=== PATIENT | male | born 1990 | race Caucasian/White ===

== ENCOUNTER 2019-01-09 13:43 | Emergency (ER) | payer OTHER ==
--- NOTE | 2019-01-09 15:51 | ED ---
Complex/Multi-Sys Presentation - HPI Summary HPI Summary: This patient is a 28 year old M presenting to ED with a chief complaint of visual changes since 2-3 days ago. 2-3 days ago patient started having left-eye vision problems where he was unable to focus on things far away or close to him. This morning, patient was at a briefing meeting and felt hot. He took his sweater off but continued to feel hot so he sat down. When he sat down, he felt shooting heat up both sides of his neck and experienced blacked vision. Patient reports he felt nauseous and vomited a little bit. Patient sat and rested for about 30 minutes and felt okay afterwards. In the ED room, patient reports feeling better except for the odd sensation in his left eye and face. The patient rates the pain 0/10 in severity. Symptoms aggravated by nothing. Symptoms alleviated by nothing. - History Of Current Complaint Chief Complaint: EDGeneral Time Seen by Provider: 01/09/19 15:35 Hx Obtained From: Patient Onset/Duration: Gradual Onset, Lasting Days - 2-3 days ago, Still Present Timing: Constant Severity Currently: Mild Severity Initially: Mild Aggravating Factor(s): Nothing Alleviating Factor(s): Nothing Associated Signs And Symptoms: Positive: Nausea, Vomiting - x1, Other - visual changes, "blacked vision," left-eye/face "odd sensation," "heat climbing up neck " - Allergies/Home Medications Allergies/Adverse Reactions: Allergies Allergy/AdvReac Type Severity Reaction Status Date / Time Penicillins Allergy Unknown Verified 01/09/19 13:50 Reaction Details Home Medications: Home Medications NK [No Home Medications Reported] 01/09/19 [History Confirmed 01/09/19] PMH/Surg Hx/FS Hx/Imm Hx Endocrine/Hematology History: Denies: Hx Diabetes Cardiovascular History: Denies: Hx Hypercholesterolemia, Hx Hypertension Respiratory History: Denies: Hx Asthma, Hx Chronic Obstructive Pulmonary Disease (COPD) Musculoskeletal History: 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 - Surgical History Surgery Procedure, Year, and Place: Appendectomy, hernia surgery, wisdom teeth Infectious Disease History: No Infectious Disease History: Denies: Traveled Outside the [place] in Last 30 Days - Family History Known Family History: Positive: Other - Breast cancer, skin cancer Negative: Hypertension, Diabetes - Social History Alcohol Use: Occasionally Hx Substance Use: No Substance Use Type: Reports: None Hx Tobacco Use: No Smoking Status (MU): Never Smoked Tobacco Review of Systems Constitutional: Other - Feeling hot, heat climbing up neck Eyes: Other - Inability to focus left eye, blacked vision Positive: Vomiting - x1, Nausea All Other Systems Reviewed And Are Negative: Yes Physical Exam - Summary Physical Exam Summary: VITAL SIGNS: Reviewed. GENERAL: Patient is a well-developed and nourished M who is lying comfortable in the stretcher.Patient is not in any acute respiratory distress. HEAD AND FACE: No signs of trauma. No ecchymosis, hematomas or skull depressions. No sinus tenderness. EYES: PERRLA, EOMI x 2, No injected conjunctiva, no nystagmus. No photophobia. EARS: Hearing grossly intact. Ear canals and tympanic membranes are within normal limits. MOUTH: Oropharynx within normal limits. NECK: Supple, trachea is midline, no adenopathy, no JVD, no carotid bruit, no c- spine tenderness, neck with full ROM. No meningeal signs, no Kernig's or brudzinskis signs. CHEST: Symmetric, no tenderness at palpation. LUNGS: Clear to auscultation bilaterally. No wheezing or crackles. CVS: Regular rate and rhythm, S1 and S2 present, no murmurs or gallops appreciated. ABDOMEN: Soft, non-tender. No signs of distention. No rebound, no guarding, and no masses palpated. Bowel sounds are normal. EXTREMITIES: FROM in all major joints, no edema, no cyanosis or clubbing. NEURO: Alert and oriented x 3. No acute neurological deficits. Speech is normal and follows commands. SKIN: Dry and warm. GCS: 15 Triage Information Reviewed: Yes Vital Signs On Initial Exam: Initial Vitals Temp Pulse Resp BP Pulse Ox 98.6 F 85 16 147/77 98 01/09/19 13:46 01/09/19 13:46 01/09/19 13:46 01/09/19 13:46 01/09/19 13:46 Vital Signs Reviewed: Yes - [place] Coma Scale Best Eye Response: 4 - Spontaneous Best Motor Response: 6 - Obeys Commands Best Verbal Response: 5 - Oriented Coma Scale Total: 15 Diagnostics - Vital Signs Vital Signs Temp Pulse Resp BP Pulse Ox 01/09/19 13:46 98.6 F 85 16 147/77 98 - Laboratory Result Diagrams: 01/09/19 15:57 01/09/19 15:57 Lab Statement: Any lab studies that have been ordered have been reviewed, and results considered in the medical decision making process. - CT Brain CT CT Interpretation Completed By: Radiologist Summary of CT Findings: Impression: No acute intracranial abnormality by CT. ED physician has reviewed this imaging report. - EKG 1558 Cardiac Rate: NL - 71 bpm EKG Rhythm: Sinus Rhythm Summary of EKG Findings: NSR at [address] elevations. Re-Evaluation - Re-Evaluation First Eval Re-Evaluation Time: 17:15 Comment: We discussed all results and plan for discharge home. Complex Multi-Symp Course/Dx Assessment/Plan: Blood work without any significant abnormality. EKG shows a normal sinus rhythm without any significant elevation. Head CT impression: No acute intracranial pathology. Since the patient continues to be asymptomatic I discussed my physical exam and findings with Dr. Early who recommends for the patient to be discharged home and follow up with neurology. I discussed the plan with the patient, and he understands and agrees. Vision also was instructed to return to the emergency department if he develops any other symptom. He understands and agrees. - Diagnoses Provider Diagnoses: Visual changes - Physician Notifications Discussed Care Of Patient With: Kris Early - neurology Time Discussed With Above Provider: 17:00 Instructed by Provider To: Other - I discussed the patient's case with Dr. Early , and he recommends follow up in his office. Discharge ED - Sign-Out/Discharge Documenting (check all that apply): Patient Departure - Patient will be discharged home. Patient Received Moderate/Deep Sedation with Procedure: No - Discharge Plan Condition: Stable Disposition: HOME Patient Education Materials: Blurred Vision (ED) Referrals: BENY Newsome [Primary Care Provider] - 3 Days Kris Early MD [Medical Doctor] - 2 Days Additional Instructions: Follow up with Dr. Early from neurology in 2-3 days. Follow up with your primary care provider in 2-3 days. Return to the emergency department for any new or worsening symptoms. - Billing Disposition and Condition Condition: STABLE Disposition: Home - Attestation Statements Document Initiated by Scribe: Yes Documenting Scribe: Esau Hannah Provider For Whom Scribe is Documenting (Include Credential): Santino Pineda MD Scribe Attestation: I, Esau Hannah, scribed for Santino Pineda MD on 01/09/19 at 1837. Scribe Documentation Reviewed: Yes Provider Attestation: The documentation as recorded by the scribe, Esau Hannah accurately reflects the service I personally performed and the decisions made by me, Santino Pineda MD Status of Scribe Document: Viewed
[2019-01-09] MEDS ORDERED: Perflutren Lipid Microsphere* 3 ML VIAL ONE (15:52)
[2019-01-09 16:05] LABS: ABS Basophils 0.1 10^3/ul (0-0.2); ABS Eosinophils 0.1 10^3/ul (0-0.6); ABS Monocytes 0.6 10^3/ul (0-0.8); ABS Neutrophils 4.5 10^3/ul (1.5-7.7); Eosinophil % 1.3 %; Hematocrit 41 % (42-52); Hemoglobin 14.1 g/dL (14.0-18.0); Lymphocyte % 27.6 %; Mean Corpuscular HGB Conc 34 g/dL (31-36); Mean Corpuscular Hemoglobin 31 pg (27-31); Mean Corpuscular Volume 89 fL (80-94); Mean Platelet Volume 8.9 fL (7.4-10.4); Platelet Count 188 10^3/uL (150-450); Red Blood Count 4.62 10^6 /uL (4.18-5.48); Red Cell Distribution Width 14 % (10-15); White Blood Count 7.2 10^3/uL (3.5-10.8)
[2019-01-09 16:22] LABS: ALT 12 U/L (7-52); AST 15 U/L (13-39); Albumin 4.7 g/dL (3.2-5.2); Alkaline Phosphatase 51 U/L (34-104); Anion Gap 5 mmol/L (2-11); BUN/Creatinine Ratio 15.8 (8-20); Blood Urea Nitrogen 16 mg/dL (6-24); CO2 Carbon Dioxide 28 mmol/L (22-32); Calcium 9.1 mg/dL (8.6-10.3); Chloride 106 mmol/L (101-111); EGFR African American 104.9 (>60); EGFR Non-African American 86.7 (>60); Globulin 2.3 g/dL (2-4); Glucose 110 mg/dL (70-100); Potassium 3.9 mmol/L (3.5-5.0); Sodium 139 mmol/L (135-145)
[2019-01-09 16:46] LABS: Alcohol < 10 mg/dL (<10)
[2019-01-09 16:59] LABS: TSH (Thyroid Stimulating Horm) 1.16 mcIU/mL (0.34-5.60)
[2019-01-09 17:16] LABS: Urine Appearance Clear; Urine Bilirubin Negative (Negative); Urine Blood Negative (Negative); Urine Color Yellow; Urine Glucose Negative (Negative); Urine Ketones Negative (Negative); Urine Nitrite Negative (Negative); Urine Protein Negative (Negative); Urine Urobilinogen Negative (Negative)
[2019-01-09 17:32] LABS: Urine Benzodiazepine Screen None Detected (None Detect); Urine Opiates Screen None Detected (None Detect)
[2019-01-09 17:37] VITALS: BP 119/79
== END 2019-01-09 17:35 | disposition home or self-care (01) ==
LOC: ED 13:43
DX: H53.9 Unspecified visual disturbance (principal); R11.2 Nausea with vomiting, unspecified; Z88.0 Allergy status to penicillin
CPT/HCPCS: 36415; 70450; 80053; 80307; 80320; 81003; 83605; 83735; 84443; 84484; 85025; 93005; 99283; G0480